=== PATIENT | female | born 1970 | race Caucasian/White ===

== ENCOUNTER → 2020-12-05 | Outpatient (CLI) | payer OTHER | LOC: KOH-I 15:33 | DX: M79.672 Pain in left foot (principal); M79.671 Pain in right foot | CPT/HCPCS: 73630 ==

== ENCOUNTER → 2020-12-14 | Outpatient (CLI) | payer OTHER | LOC: KOH-I 08:52 | DX: M79.671 Pain in right foot (principal); R26.2 Difficulty in walking, not elsewhere classified; M72.2 Plantar fascial fibromatosis | CPT/HCPCS: 73718 ==

== ENCOUNTER → 2021-01-02 | Outpatient (CLI) | payer OTHER | LOC: KOH-I 09:43 | DX: S82.401A Unspecified fracture of shaft of right fibula, initial encounter for closed fracture (principal) | CPT/HCPCS: 73610 ==